=== PATIENT | female | born 1990 | race Two or more races ===

== ENCOUNTER 2024-06-13 19:11 | Emergency (ER) | payer OTHER ==
[~2024-06-13] VITALS: Ht 165.1 cm; Wt 74.8 kg
[2024-06-13] MEDS ORDERED: PROP20TA7 PO (19:33)
[2024-06-13 19:47] LABS: *BILIRUBIN,URIN NEGATIVE (NEGATIVE); *BLOOD, URINE NEGATIVE (NEGATIVE); *CLARITY,URINE CLEAR (CLEAR); *COLOR,URINE YELLOW (YELLOW); *KETONES,URINE NEGATIVE (NEGATIVE); *PROTEIN,URINE NEGATIVE (NEGATIVE); *UROBILINOGEN,URINE 0.2 E.U./dl (NORMAL); LEUKOCYTE ESTERASE ,URINE NEGATIVE (NEGATIVE); NITRITE, URINE NEGATIVE (NEGATIVE); UGLUCOSE NEGATIVE (NEGATIVE)
[2024-06-13 20:06] LABS: *URINE HCG, QUAL NEGATIVE (NEGATIVE)
[2024-06-13] MEDS ORDERED: KETOROLAC TROMETHAMINE 15 MG INJ ONE (20:17)
[2024-06-13] MEDS ORDERED: HYDROMORPHONE 1 MG/1 ML DISP.SYRIN ONE (20:17)
[2024-06-13] MEDS ORDERED: ONDANSETRON 4 MG/2 ML VIAL ONE (20:17)
[2024-06-13 20:26] LABS: BASOPHILS # (AUTO) 0.1 K/UL (0.0-0.2); BASOPHILS % (AUTO) 0.7 % (0.0-2.0); EOSINOPHILS # (AUTO) 0.2 K/uL (0.0-0.7); EOSINOPHILS % (AUTO) 2.3 % (0.0-7.0); HEMATOCRIT 39.1 % (31.2-41.9); LYMPHOCYTES # (AUTO) 2.6 K/uL (0.8-4.8); LYMPHOCYTES % (AUTO) 31.7 % (20.5-51.5); MEAN CORPUSCULAR HEMOGLOBIN 26.2 uug (24.7-32.8); MEAN CORPUSCULAR HGB CONC 33 g/dL (32.3-35.6); MEAN CORPUSCULAR VOLUME 78.6 fL (75.5-95.3); MONOCYTES # (AUTO) 0.5 K/uL (0.1-1.30); MONOCYTES % (AUTO) 5.9 % (0.0-11.0); NEUTROPHILS # (AUTO) 4.8 K/uL (1.8-8.9); NEUTROPHILS % (AUTO) 59.4 % (38.5-71.5); PLATELET COUNT (AUTO) 371 K/uL (179-408); RED BLOOD CELL COUNT(AUTO) 4.98 MIL/uL (3.63-4.92); RED CELL DISTRIBUTION WIDTH 14.1 % (12.3-17.7); WHITE BLOOD COUNT (AUTO) 8.2 K/uL (3.8-11.8)
[2024-06-13] MEDS: HYDROMORPHONE 1 MG/1 ML DISP.SYRIN IV ONE (20:29)
[2024-06-13] MEDS: KETOROLAC TROMETHAMINE 15 MG INJ IVP ONE (20:30)
[2024-06-13] MEDS: ONDANSETRON 4 MG/2 ML VIAL IV ONE (20:30)
[2024-06-13 20:36] LABS: CALCIUM 9.4 mg/dL (8.5-10.1); CREATININE 0.8 mg/dL (0.6-1.3); POTASSIUM 3.9 mmol/L (3.5-5.1)
[2024-06-13 20:38] LABS: DIFFERENTIAL COMMENT 1
[2024-06-13 20:41] LABS: ALBUMIN 3.6 g/dL (3.4-5.0); BILIRUBIN,DIRECT 0.1 mg/dL (0.0-0.2); BILIRUBIN,TOTAL 0.2 mg/dL (0.2-1.0); TOTAL PROTEIN, SERUM 7.8 g/dL (6.4-8.2)
[2024-06-13] MEDS ORDERED: IV NORMAL SALINE 250 ML IV ONE (20:54)
[2024-06-13] MEDS ORDERED: SWABABLE VALVE TRANSFER SET EA MC ONE (20:54)
[2024-06-13] MEDS ORDERED: IOHEXOL 300MG/ML 100 ML INFUS..BTL ONE (20:54)
[2024-06-13] MEDS ORDERED: diphenhydrAMINE 50 MG/1 ML VIAL ONE (22:08)
[2024-06-13] MEDS ORDERED: HYDR-4209 PO ×2 (22:11→22:13)
[2024-06-13] MEDS: diphenhydrAMINE 50 MG/1 ML VIAL IV ONE (22:12)
[2024-06-13 22:34] VITALS: BP 128/80; TEMP 97.9; O2SAT 99
== END 2024-06-13 22:40 | disposition home or self-care (01) ==
LOC: ER 19:48
DX: R10.32 Left lower quadrant pain (principal); R30.0 Dysuria; Z88.0 Allergy status to penicillin
CPT/HCPCS: 99285; 74177; 96374; 96375; 80076; 80048; 81003; 84703; 83690; 85025; 36415; J1885; J1171; J1200; J2405; Q9967; A4606; A4663; J7040